=== PATIENT | female | born 1995 | race Two or more races ===

== ENCOUNTER 2019-05-16 18:48 | Emergency (ER) | payer MEDICAID ==
[2019-05-16 19:43] LABS: Urine WBC None Seen /hpf (0 - 5)
[2019-05-16 19:49] LABS: Basophils # (auto) 0 uL; Basophils % (auto) 0.3 % (0.0-2.0); Eosinophils # (auto) 0.2 uL; Eosinophils % (auto) 1.7 % (0.0-7.0); Hematocrit 40.1 % (36.0-46.0); Hemoglobin 13.8 g/dL (12.2-16.2); Lymphocytes # (auto) 2.8 uL; Lymphocytes % (auto) 31.4 % (10.0-50.0); Mean Corpuscular Hemoglobin 29.5 pg (28.0-32.0); Mean Corpuscular Hgb Conc. 34.3 g/dL (32.0-36.0); Mean Corpuscular Volume 86.2 fL (80.0-100.0); Monocytes # (auto) 0.7 uL; Monocytes % (auto) 7.3 % (0.0-12.0); Neutrophils # (auto) 5.4 uL; Neutrophils % (auto) 59.3 % (37.0-80.0); Platelet Count (auto) 202 10^3/uL (140-450); Red Blood Cells 4.66 10^6/uL (4.0-5.20); Red Cell Distribution Width 13.8 % (11.8-14.3); White Blood Cell 9.1 10^3/uL (4.4-10.8)
[2019-05-16 19:54] LABS: Urine Bacteria NONE SEEN /hpf (None Seen); Urine Blood TRACE /uL (Negative); Urine Specific Gravity 1.022 (1.001-1.035)
[2019-05-16 22:20] VITALS: BP 125/68
[2019-05-16] MEDS ORDERED: CEPHALEXIN 250 MG CAP PO ONE (22:30)
== END 2019-05-16 22:29 | disposition home or self-care (01) ==
LOC: ER 18:55
DX: O26.851 Spotting complicating pregnancy, first trimester (principal); O23.41 Unspecified infection of urinary tract in pregnancy, first trimester; Z3A.13 13 weeks gestation of pregnancy
CPT/HCPCS: 24640; 36415; 76801; 81001; 84702; 85025

== ENCOUNTER 2019-07-15 12:51 | Observation (INO) | payer MEDICAID ==
[~2019-07-15] VITALS: Ht 157.5 cm; Wt 61.7 kg
[2019-07-15 13:21] VITALS: BP 132/89
[2019-07-15] MEDS ORDERED: PREN-96 PO (14:12)
[2019-07-15] MEDS ORDERED: ceFAZolin 1GM/50ML 50 ML IV ONE ×2 (15:30→16:11)
[2019-07-15] MEDS ORDERED: LACTATED RINGER'S 1,000 ML IV ONE (16:01)
[2019-07-15] MEDS ORDERED: NIFEdipine 10 MG CAP ONE (16:10)
[2019-07-15] MEDS ORDERED: TERBUTALINE SULFATE 1 MG/ML 1ML VIAL SC ONE (16:10)
[2019-07-15] MEDS ORDERED: LACTATED RINGER'S 1,000 ML IV SCH (16:11)
[2019-07-15] MEDS ORDERED: TERBUTALINE SULFATE 1 MG/ML 1ML VIAL SC SCH (16:15)
[2019-07-15] MEDS ORDERED: NIFEdipine 10 MG CAP PO ONE (16:15)
[2019-07-15] MEDS ORDERED: ceFAZolin 1GM/50ML 50 ML IV SCH (16:30)
[2019-07-15 16:35] LABS: Urine Bacteria FEW /hpf (None Seen); Urine Blood 1+ /uL (Negative); Urine Mucus FEW (None Seen); Urine Specific Gravity 1.018 (1.001-1.035); Urine WBC 38 /hpf (0 - 5)
[2019-07-15 17:02] LABS: Basophils # (auto) 0 uL; Basophils % (auto) 0.2 % (0.0-2.0); Eosinophils # (auto) 0.1 uL; Eosinophils % (auto) 0.6 % (0.0-7.0); Hematocrit 35.8 % (36.0-46.0); Hemoglobin 11.8 g/dL (12.2-16.2); Lymphocytes # (auto) 3.4 uL; Lymphocytes % (auto) 30.3 % (10.0-50.0); Mean Corpuscular Volume 87.9 fL (80.0-100.0); Monocytes # (auto) 0.8 uL; Neutrophils # (auto) 6.9 uL; Neutrophils % (auto) 61.9 % (37.0-80.0); Platelet Count (auto) 192 10^3/uL (140-450); Red Blood Cells 4.08 10^6/uL (4.0-5.20); Red Cell Distribution Width 14.1 % (11.8-14.3); White Blood Cell 11.2 10^3/uL (4.4-10.8)
[2019-07-15 17:16] LABS: Albumin 2.8 g/dL (3.4-5.0); BUN/Creatinine Ratio 8.9; Calcium 8.8 mg/dL (8.5-10.1); Potassium 3.4 mmol/L (3.5-5.1)
[2019-07-15 17:19] LABS: Bilirubin, Total 0.3 mg/dL (0.2-1.0); Total Protein 6.5 g/dL (6.4-8.2)
[2019-07-15 17:42] LABS: INR < 0.93 (0.9-1.15); Partial Thromboplastin Time 22.3 sec (23.64-32.05)
== END 2019-07-15 18:02 | disposition short-term general hospital (02) | DRG 563 ==
LOC: ER 12:58 → LDRP 13:43
PROVIDERS: ADMIT Specialist; ATTEND Specialist
DX: O60.02 Preterm labor without delivery, second trimester (principal); F17.200 Nicotine dependence, unspecified, uncomplicated; O26.852 Spotting complicating pregnancy, second trimester; O99.312 Alcohol use complicating pregnancy, second trimester; O99.332 Smoking (tobacco) complicating pregnancy, second trimester; Z3A.21 21 weeks gestation of pregnancy
CPT/HCPCS: 36415; 59025; 76805; 80053; 81001; 81002; 85025; 85610; 85730; 96365; 96372; 99284; G0378; J0690; J3105